=== PATIENT | female | born 2000 | race Caucasian/White ===

== ENCOUNTER → 2019-04-09 | Outpatient (REF) | payer BC ==
[2019-04-09 17:48] LABS: PLATELET COUNT, AUTOMATED 298 K/uL (150-450)
== END ==
PROVIDERS: ATTEND Nurse Practitioner Family
DX: E11.9 Type 2 diabetes mellitus without complications (principal)
CPT/HCPCS: 82040; 82247; 82310; 82374; 82435; 82565; 82947; 83036; 84075; 84132; 84155; 84295; 84450; 84460; 84520; 85025

== ENCOUNTER → 2019-04-13 | Outpatient (REF) | payer BC ==
[2019-04-13 19:47] LABS: PLATELET COUNT, AUTOMATED 305 K/uL (150-450)
== END ==
PROVIDERS: ATTEND Nurse Practitioner Family
DX: Z86.39 Personal history of other endocrine, nutritional and metabolic disease (principal)
CPT/HCPCS: 82040; 82247; 82310; 82374; 82435; 82565; 82947; 84075; 84132; 84155; 84295; 84450; 84460; 84520; 84681; 85025; 86337

== ENCOUNTER → 2019-04-20 | Outpatient (CLI) | payer BC | LOC: LAB 08:20 | PROVIDERS: ATTEND Family Medicine | DX: E03.9 Hypothyroidism, unspecified (principal); E11.65 Type 2 diabetes mellitus with hyperglycemia | CPT/HCPCS: 36415; 84439; 84481; 86376; 86800 ==

== ENCOUNTER → 2019-04-27 | Outpatient (CLI) | payer BC ==
--- NOTE | 2019-04-27 19:50 | RADIOLOGY IMAGING REPORT ---
FACILITY: [facility] PATIENT NAME: Carlene Espinoza : 2000 MR: [id number] V: [id number] EXAM DATE: ORDERING PHYSICIAN: CLARI HENDRICKS TECHNOLOGIST: Location: [facility] Patient: Carlene Espinoza : 2000 Visit/Account:[id number] Date of Sevice: 04/27/2019 EXAMINATION: Ultrasound the low back HISTORY: Cyst drained in perianal region Durga now on antibiotics. Antibiotic change. Evaluate for abscess. COMPARISON: None. FINDINGS: High frequency linear ultrasound over the area of concern in the right posterior hip soft tissues was obtained. There is generalized soft tissue trabeculation. No fluid collection is identifi ed in the area of concern. IMPRESSION: No fluid collection is identified. Diffuse soft tissue trabeculation. Report Dictated By: Tod Sierra MD at 04/27/2019 7:40 PM Report E-Signed By: Tod Sierra MD at 04/27/2019 7:43 PM WSN:[id number]
== END ==
LOC: US 18:38
PROVIDERS: ATTEND Nurse Practitioner Family
DX: L02.415 Cutaneous abscess of right lower limb (principal)
CPT/HCPCS: 76881